=== PATIENT | male | born 1950 | race African-American/Black ===

== ENCOUNTER 2016-09-16 19:40 | Emergency (ER) | payer OTHER ==
--- NOTE | 2016-09-16 21:20 | PROVIDER DOCUMENTATION ---
HPI-Respiratory General - General Source: patient - History of Present Illness-Resp Quality of Pain: reports: none Severity in ED: reports: mild Onset/Duration: reports: 2 days ago Timing: reports: still present Cough Quality/Degree: reports: mild, productive cough, sputum Episode Frequency: no prior episodes Current Respiratory Medication Therapy: Initiated see nurses note Associated Symptoms: reports: cough, fever/chills (subjective), nasal congestion Similar Symptoms Previously?: No Recently seen or treated by another doctor?: No <Merissa Aquino - Last Filed: 09/16/16 22:21> <Homero Thomas - Last Filed: 09/16/16 22:25> - General Chief Complaint: Cold Symptoms Stated Complaint: COUGHING,THROAT SCRATCHY Time Seen by Provider: 09/16/16 20:20 Allergies/Adverse Reactions: Patient Allergies Allergy/AdvReac Type Severity Reaction Status Date / Time Penicillins Allergy Mild RASH Verified 07/16/16 21:27 morphine AdvReac Intermediate AMS Verified 07/16/16 21:27 Home Medications: Home Medication List Medication Instructions Recorded Confirmed Last Taken Type Omeprazole [Prilosec] 20 mg PO BID 06/24/12 06/15/16 05/27/16 History Trazodone [Desyrel] 150 mg PO QHS 06/24/12 06/15/16 1 Day Ago History Multivitamin [Multivitamins] 1 each PO QAM 06/25/12 06/15/16 05/27/16 History Tamsulosin [Flomax] 0.4 mg PO QAM 06/25/12 06/15/16 05/27/16 History Sertraline HCl [Zoloft] 100 mg PO QAM 01/02/14 06/15/16 05/27/16 History Albuterol [Albuterol Neb] 2.5 mg INH 4XDAY 07/11/15 06/15/16 04/13/16 History Isosorbide Mononitrate E.r. [Imdur] 60 mg PO QAM #0 tablet 10/07/15 06/15/1601/04 Rx Insulin Glargine [Lantus] 40 units SUBQ DIRECTED PRN PRN 01/17/16 06/15/16 3 Days Ago History Carvedilol 25 mg PO BID #60 tablet 0906/15/16 05/27/16 Rx Aspirin 81 mg PO DAILY 05/27/16 06/15/16 05/27/16 History Glipizide 10 mg PO BID 05/27/16 06/15/16 05/27/16 History Meloxicam 15 mg PO DAILY 05/27/16 06/15/16 05/27/16 History Metformin HCl 1,000 mg PO BID 05/27/16 06/15/16 05/27/16 History Hydrocodone/Acetaminophen [[place] 1 each PO 4XDAY PRN PRN 05/28/16 06/15/1605/27 09:00 History 10-325 Tablet] Amlodipine [Norvasc] 10 mg PO DAILY #30 tablet 05/31/16 06/15/16 Unknown Rx Clonidine Patch [Mhbrocdj-Ycp-9] 1 each TD Q7D #4 patch 05/31/16 06/15/16 Unknown Rx Furosemide [Lasix] 40 mg PO DAILY #30 tablet 05/31/16 06/15/16 Unknown Rx Losartan [Cozaar] 100 mg PO DAILY #30 tablet 05/31/16 06/15/16 Unknown Rx PRAVAstatin [Pravachol] 80 mg PO QHS #0 05/31/16 06/15/16 05/26/16 21:00 Rx Potassium Chloride E.r. [Klor-Con] 20 meq PO DAILY #30 tablet 05/31/16 06/15/16 Unknown Rx Spironolactone [Aldactone] 25 mg PO DAILY #30 tablet 05/31/16 06/15/16 Unknown Rx Cyclobenzaprine [Flexeril] 10 mg PO TID #20 tablet 06/15/16 Unknown Rx Ibuprofen [Motrin] 800 mg PO Q8H PRN PRN #20 tablet 06/15/16 Unknown Rx Omeprazole [Prilosec] 20 mg PO DAILY@0700 #20 capsule 06/15/16 Unknown Rx Cyclobenzaprine [Flexeril] 10 mg PO TID #20 tablet 07/16/16 Unknown Rx Gabapentin [Neurontin] 300 mg PO BID #30 capsule 07/16/16 Unknown Rx Azithromycin 250 mg PO DAILY #4 tablet 09/16/16 Unknown Rx - History of Present Illness-Resp Nature of Presenting Problem: 66 year old M presents to the ED with a cc of cough, congestion, and sore throat with an onset of 2 days. Pt states that he has been coughing up yellow phlegm. Pt states that he has been having chills and sweats. (Merissa Aquino) Review of Systems - Adult - REVIEW OF SYSTEMS - ADULT Constitutional: reports: fever (subjective). denies: chills Eyes: reports: no symptoms reported Ears, Nose, Mouth & Throat: reports: sinus problem, throat pain. denies: ear pain Cardiovascular: denies: chest pain, palpitations Respiratory: reports: cough. denies: shortness of breath Gastrointestinal: denies: nausea, vomiting Genitourinary: reports: no symptoms reported Musculoskeletal: reports: no symptoms reported Integumentary: denies: skin sores/ulcer, skin thickening Neurological: reports: no symptoms reported Psychiatric: reports: no symptoms reported Endocrine: reports: no symptoms reported Hematologic/Lymphatic: reports: no symptoms reported Allergic/Immunologic: reports: no symptoms reported All Other Systems: Reviewed and Negative <Merissa Aquino - Last Filed: 09/16/16 22:21> Past History - Adult - PAST MEDICAL HISTORY-ADULT Review of Records: reports: Nursing Assessment Review, Medications Reviewed Major Childhood Illnesses: reports: denies history Cardiovascular: reports: cardiac disease, CAD, CHF, HTN, hyperlipidemia, ID (x 2 ) Respiratory: reports: COPD Gastrointestinal: reports: denies history Obstetrical/Gynecological: reports: denies history Genitourinary: reports: denies history Musculoskeletal: reports: chronic pain Neurological: reports: denies history Psychiatric: reports: anxiety, depression Endocrine/Immune: reports: Diabetes Other Conditions: reports: denies history - PRIOR SURGERIES/PROCEDURES Surgical/Procedure History: reports: hernia repair, orthopedic (extremity) ( LEFT AKA) - IMMUNIZATION STATUS Childhood Immunizations: See Nurse Assessment Flu Vaccine: See Nurse Assessment - FAMILY HISTORY Family History: reviewed, not pertinent - SOCIAL HISTORY Smoking: cigarettes, greater than 1 pack/day Provider spent 3-5 mins advising pt. on dangers of tobacco.: Discussed manners to quit use, and f/u contacts for add'l counseling. Substance Use: none/never Alcohol Use Frequency: occasionally <Merissa Aquino - Last Filed: 09/16/16 22:21> Physical Exam-General - PHYSICAL EXAM-ADULT Initial Vital Signs Reviewed: Yes - CONSTITUTIONAL General Appearance: appears well, alert, no apparent distress - HEAD, EARS, NOSE, MOUTH & THROAT HENMT: normocephalic/atraumatic, moist mucous membranes, TMs normal, pharynx normal, other (nasal congestion) - RESPIRATORY Respiratory: chest non-tender, lungs clear, decreased breath sounds (bilaterally ) - CARDIOVASCULAR Cardiovascular: normal peripheral pulses, regular rate, rhythm, no edema - GASTROINTESTINAL (ABDOMEN) Abdominal Exam: non tender, soft - MUSCULOSKELETAL Extremity: other (left AKA) - SKIN Integumentary: normal color, normal turgor, warm/dry - PSYCHIATRIC Psych/Mental Status: normal mood/affect, normal thought content, normal thought process, oriented x 3 <Merissa Aquino - Last Filed: 09/16/16 22:21> Progress - XRAY 1 XRAY Study: Chest Impression: Normal XRAY Interpretation: NAD, improved from previous: Dr. Ez MAGANA MD <Merissa Aquino - Last Filed: 09/16/16 22:21> <Homero Thomas - Last Filed: 09/16/16 22:25> - PLAN OF CARE/RESULTS Progress/Plan/Lab Results: plan of care: imaging, labs Orders Category Date Time Status FSBS/Accucheck Result NOW Care 09/16/16 21:20 Active CHEST-2 VIEWS [RAD] Stat Exams 09/16/16 21:[address] Stat Lab 09/16/16 21:40 Completed Flu [INFLUENZA SCREEN PL] Stat Lab 09/16/16 20:00 Completed Laboratory Tests 09/16/16 09/16/16 09/16/16 20:00 21:40 21:54 POC Glucose 263 H Influenza A (Rapid) NEGATIVE Influenza B (Rapid) NEGATIVE Group A Strep Rapid NEGATIVE Vital Signs - 24 hr 09/16/16 20:01 Temperature 98.8 F Pulse Rate 94 H Respiratory 18 Rate Blood Pressure 129/71 O2 Sat by Pulse 97 Oximetry Pt given results and will be d/c home w/ rx to follow up with PCP. Pt verbally understood instructions. PT remained clinically stable throughout the course of the ED stay and will return if symptoms worsen. (Merissa Aquino) Departure <Merissa Aquino - Last Filed: 09/16/16 22:21> - Departure Time of Disposition Order: 23:00 Certified Medical Emergency: Emergent <Homero Thomas Filed: 09/16/16 22:25> - Departure DIAGNOSIS: Acute bronchitis Qualifiers: Bronchitis organism: other organism Qualified Code(s): J20.8 - Acute bronchitis due to other specified organisms Disposition: HOME 01 Condition: Stable Additional Instructions: followup with PCP in 2 days for recheck, tylenol and motrin for pain and fever Prescriptions: Azithromycin 250 mg PO DAILY #4 tablet Referrals: Doyle Hoyt MD [Primary Care Provider] - Attestation - Scribe Verification/Attestation Scribe:: Merissa Aquino Acting as Scribe for:: Homero Thomas Scribe documention review:: This chart was documented by a scribe and accurately reflects the service the provider performed and the decisions made by the provider. <Merissa Aquino - Last Filed: 09/16/16 22:21> Physician Attestation - Physician Attestation I, the provider, attest to the following statement:: Homero Thomas Physician documentation Attestation:: This documentation recorded by the scribe accurately reflects the service I personally performed and the decisions made by me. <Merissa Aquino - Last Filed: 09/16/16 22:21>
[2016-09-16] MEDS ORDERED: ROCEPHIN IM ONE (22:22)
[2016-09-16] MEDS ORDERED: XYLOCAINE-MPF 1% INJ ONE (22:22)
[2016-09-16] MEDS ORDERED: ZITHROMAX PO ONE (22:23)
[2016-09-16 23:08] VITALS: BP 140/83
--- NOTE | 2016-09-17 08:51 | Diag Imaging Result Document ---
PROCEDURE NAME: CHEST-2 VIEWS - 09/16/2016 FRONTAL AND LATERAL CHEST, TWO VIEWS: COMPARISON: 05/27/2016. FINDINGS: There has been prior surgery to the lower neck. The heart is not enlarged. The vessels are not distended. No pleural effusions. There are mild increased interstitial markings in the mid and lower left lung believed to be fibrosis. No consolidation. IMPRESSION: Fibrosis versus recurrent infiltrates.
== END 2016-09-16 23:06 | disposition home or self-care (01) ==
LOC: P.ED 19:40
DX: J20.9 Acute bronchitis, unspecified (principal); R05 Cough; R09.3 Abnormal sputum; R50.9 Fever, unspecified; R09.81 Nasal congestion; R09.89 Other specified symptoms and signs involving the circulatory and respiratory systems; J02.9 Acute pharyngitis, unspecified; I25.10 Atherosclerotic heart disease of native coronary artery without angina pectoris; Z79.899 Other long term (current) drug therapy; I50.9 Heart failure, unspecified; I10 Essential (primary) hypertension; E78.5 Hyperlipidemia, unspecified; I25.2 Old myocardial infarction; J44.9 Chronic obstructive pulmonary disease, unspecified; G89.29 Other chronic pain; E11.9 Type 2 diabetes mellitus without complications; F41.9 Anxiety disorder, unspecified; F32.9 Major depressive disorder, single episode, unspecified; F17.210 Nicotine dependence, cigarettes, uncomplicated; Z79.82 Long term (current) use of aspirin; Z79.4 Long term (current) use of insulin; Z71.6 Tobacco abuse counseling; Z89.612 Acquired absence of left leg above knee
CPT/HCPCS: 71020; 82948; 87081; 87430; 87804; 96372; J0696

== ENCOUNTER 2016-09-25 20:50 | Emergency (ER) | payer OTHER ==
[2016-09-25 21:12] LABS: MANUAL DIFF NEEDED? NO
[2016-09-25 21:15] LABS: BASO% 0.3 % (0.0-0.8); EOS# 0.36 X1000 (0.0-0.7); EOS% 3.7 % (0.0-10.0); HEMOGLOBIN 14.2 g/dL (14.0-18.0); IMM GRAN# 0.03 X1000 (0.0-0.04); IMM GRAN% 0.3 % (0.0-0.5); LYMPH# 2.59 X1000 (1.2-3.4); LYMPH% 26.3 % (20.5-51.1); MCH 28.2 PG (27-31); MCHC 34.6 g/dL (33-37); MCV 81.5 FL (81-99); MONO# 0.78 X1000 (0.11-0.59); MONO% 7.9 % (1.7-9.3); MPV 12.2 FL (7.4-10.4); NEUT% 61.5 % (42.2-75.2); PLT 150 X1000 (130-400); RBC 5.03 XMIL (4.7-6.1)
--- NOTE | 2016-09-25 21:20 | PROVIDER DOCUMENTATION ---
Addendum entered and electronically signed by Merissa Aquino Scribe 09/26/16 02: 09: Progress - PLAN OF CARE/RESULTS Progress/Plan/Lab Results: plan of care: imaging, labs, medications, EKG Orders Category Date Time Status CHEST-2 VIEWS [RAD] Stat Exams 09/25/16 21:07 Taken BNP [PRO B-NATRIURETIC PEPTIDE] Stat Lab 09/25/16 21:07 Completed CBC WITH DIFF [HEME] Stat Lab 09/25/16 20:35 Completed CK PROFILE [SP CHEM] Stat Lab 09/25/16 20:35 Completed COMPREHENSIVE METABOLIC PANEL [CHEM] Stat Lab 09/25/16 20:35 Completed TROPONIN T Stat Lab 09/25/16 20:35 Completed TROPONIN T Stat Lab 09/26/16 00:[address] W/POSS RFLX CULT [URINALYSIS] Stat Lab 09/25/16 22:00 Completed URINE CULTURE [RM] Routine Lab 09/25/16 22:58 Ordered Furosemide [Lasix] Med 09/25/16 22:52 Discontinued 40 mg IV NOW ONE Levofloxacin [Levaquin] Med 09/26/16 01:39 Discontinued 750 mg PO NOW ONE Oxycodone/APAP 10 mg/325 mg [Percocet-10] Med 09/26/16 01:33 Discontinued 1 each PO NOW ONE EKG [EKG] Stat Ther 09/25/16 21:06 Draft EKG [EKG] Stat Ther 09/26/16 00:25 Draft Laboratory Tests 09/25/16 09/25/16 09/25/16 20:35 20:35 20:35 WBC 9.86 RBC 5.03 Hgb 14.2 Hct 41.0 L MCV 81.5 MCH 28.2 MCHC 34.6 RDW Std Deviation 14.6 H Plt Count 150 MPV 12.2 H Immature Gran % (Auto) 0.3 Neut % (Auto) 61.5 Lymph % (Auto) 26.3 Wilkinson % (Auto) 7.9 Eos % (Auto) 3.7 Baso % (Auto) 0.3 Immature Gran # (Auto) 0.03 Neut # (Auto) 6.07 Lymph # (Auto) 2.59 Wilkinson # (Auto) 0.78 H Eos # (Auto) 0.36 Baso # (Auto) 0.03 Sodium 132 L Potassium 3.6 Chloride 94 L Carbon Dioxide 24 L Anion Gap 14 BUN 10 Creatinine 1.2 Estimated GFR/1.73 m2 > 60 BUN/Creatinine Ratio 8 Glucose 236 H Calculated Osmolality 271 Calcium 9.4 Total Bilirubin < 0.15 L AST 17 ALT 14 Alkaline Phosphatase 78 Creatine Kinase 202 Troponin T Ocb-P-Kjwbzbmtain Pept Total Protein 6.8 Albumin 3.9 Globulin 3.0 Albumin/Globulin Ratio 1.0 Urine Source Urine Color Urine Clarity Urine pH Ur Specific [place] Urine Protein Urine Ketones Urine Blood Urine Nitrite Urine Bilirubin Urine Urobilinogen Urine Microscopic RBC Urine WBC Urine Microscopic WBC Ur Epithelial Cells Urine Bacteria Urine Glucose 09/25/16 09/25/16 09/25/16 20:35 21:07 22:00 WBC RBC Hgb Hct MCV MCH MCHC RDW Std Deviation Plt Count MPV Immature Gran % (Auto) Neut % (Auto) Lymph % (Auto) Wilkinson % (Auto) Eos % (Auto) Baso % (Auto) Immature Gran # (Auto) Neut # (Auto) Lymph # (Auto) Wilkinson # (Auto) Eos # (Auto) Baso # (Auto) Sodium Potassium Chloride Carbon Dioxide Anion Gap BUN Creatinine Estimated GFR/1.73 m2 BUN/Creatinine Ratio Glucose Calculated Osmolality Calcium Total Bilirubin AST ALT Alkaline Phosphatase Creatine Kinase Troponin T < 0.010 Bpi-E-Thfsypcqmhx Pept 447 H Total Protein Albumin Globulin Albumin/Globulin Ratio Urine Source VOIDED Urine Color YELLOW Urine Clarity CLEAR Urine pH 6.5 Ur Specific [place] 1.005 Urine Protein 1+(30 mg/dL) A Urine Ketones NEGATIVE Urine Blood TRACE Urine Nitrite NEGATIVE Urine Bilirubin NEGATIVE Urine Urobilinogen NORMAL Urine Microscopic RBC <10 Urine WBC TRACE A Urine Microscopic WBC <10 Ur Epithelial Cells <10 Urine Bacteria 3+ Urine Glucose 3+(500 mg/dL) A 09/26/16 00:45 WBC RBC Hgb Hct MCV MCH MCHC RDW Std Deviation Plt Count MPV Immature Gran % (Auto) Neut % (Auto) Lymph % (Auto) Wilkinson % (Auto) Eos % (Auto) Baso % (Auto) Immature Gran # (Auto) Neut # (Auto) Lymph # (Auto) Wilkinson # (Auto) Eos # (Auto) Baso # (Auto) Sodium Potassium Chloride Carbon Dioxide Anion Gap BUN Creatinine Estimated GFR/1.73 m2 BUN/Creatinine Ratio Glucose Calculated Osmolality Calcium Total Bilirubin AST ALT Alkaline Phosphatase Creatine Kinase Troponin T < 0.010 Bim-K-Cmmydhpifol Pept Total Protein Albumin Globulin Albumin/Globulin Ratio Urine Source Urine Color Urine Clarity Urine pH Ur Specific [place] Urine Protein Urine Ketones Urine Blood Urine Nitrite Urine Bilirubin Urine Urobilinogen Urine Microscopic RBC Urine WBC Urine Microscopic WBC Ur Epithelial Cells Urine Bacteria Urine Glucose Vital Signs - 24 hr 09/25/16 20:51 Temperature 98.8 F Pulse Rate 107 H Respiratory 18 Rate Blood Pressure 128/85 O2 Sat by Pulse 91 L Oximetry Pt given results and will be d/c home w/ rx to follow up with PCP. Pt verbally understood instructions. PT remained clinically stable throughout the course of the ED stay and will return if symptoms worsen. Original Note: HPI-Chest Pain - General Source: patient - History of Present Illness-CP Location: reports: other (back) Chest Pain Radiation: reports: other (right anterior chest) Quality of Pain: reports: sharp Severity in ED: mild Onset/Duration: 24 hours ago Timing: still present Context/Activities at Onset: reports: none Modifying Factors: improves with: nothing Similar Symptoms Previously?: No Recently Seen Here or By Another Healthcare Provider: No <Merissa Aquino - Last Filed: 09/25/16 22:09> <Dylan Colmenares - Last Filed: 09/26/16 02:00> - General Chief Complaint: Chest Pain Stated Complaint: chest pain Time Seen by Provider: 09/25/16 20:55 Allergies/Adverse Reactions: Patient Allergies Allergy/AdvReac Type Severity Reaction Status Date / Time Penicillins Allergy Mild RASH Verified 07/16/16 21:27 morphine AdvReac Intermediate AMS Verified 07/16/16 21:27 Home Medications: Home Medication List Medication Instructions Recorded Confirmed Last Taken Type Omeprazole [Prilosec] 20 mg PO BID 06/24/12 06/15/16 05/27/16 History Trazodone [Desyrel] 150 mg PO QHS 06/24/12 06/15/16 1 Day Ago History Multivitamin [Multivitamins] 1 each PO QAM 06/25/12 06/15/16 05/27/16 History Tamsulosin [Flomax] 0.4 mg PO QAM 06/25/12 06/15/16 05/27/16 History Sertraline HCl [Zoloft] 100 mg PO QAM 01/02/14 06/15/16 05/27/16 History Albuterol [Albuterol Neb] 2.5 mg INH 4XDAY 07/11/15 06/15/16 04/13/16 History Isosorbide Mononitrate E.r. [Imdur] 60 mg PO QAM #0 tablet 10/07/15 06/15/1601/04 Rx Insulin Glargine [Lantus] 40 units SUBQ DIRECTED PRN PRN 01/17/16 06/15/16 3 Days Ago History Carvedilol 25 mg PO BID #60 tablet 04/14/16 06/15/16 05/27/16 Rx Aspirin 81 mg PO DAILY 05/27/16 06/15/16 05/27/16 History Glipizide 10 mg PO BID 05/27/16 06/15/16 05/27/16 History Meloxicam 15 mg PO DAILY 05/27/16 06/15/16 05/27/16 History Metformin HCl 1,000 mg PO BID 05/27/16 06/15/16 05/27/16 History Hydrocodone/Acetaminophen [[place] 1 each PO 4XDAY PRN PRN 05/28/16 06/15/1605/27 09:00 History 10-325 Tablet] Amlodipine [Norvasc] 10 mg PO DAILY #30 tablet 05/31/16 06/15/16 Unknown Rx Clonidine Patch [Mgbluehi-Uby-9] 1 each TD Q7D #4 patch 05/31/16 06/15/16 Unknown Rx Furosemide [Lasix] 40 mg PO DAILY #30 tablet 05/31/16 06/15/16 Unknown Rx Losartan [Cozaar] 100 mg PO DAILY #30 tablet 05/31/16 06/15/16 Unknown Rx PRAVAstatin [Pravachol] 80 mg PO QHS #0 05/31/16 06/15/16 05/26/16 21:00 Rx Potassium Chloride E.r. [Klor-Con] 20 meq PO DAILY #30 tablet 05/31/16 06/15/16 Unknown Rx Spironolactone [Aldactone] 25 mg PO DAILY #30 tablet 05/31/16 06/15/16 Unknown Rx Cyclobenzaprine [Flexeril] 10 mg PO TID #20 tablet 06/15/16 Unknown Rx Ibuprofen [Motrin] 800 mg PO Q8H PRN PRN #20 tablet 06/15/16 Unknown Rx Omeprazole [Prilosec] 20 mg PO DAILY@0700 #20 capsule 06/15/16 Unknown Rx Cyclobenzaprine [Flexeril] 10 mg PO TID #20 tablet 07/16/16 Unknown Rx Gabapentin [Neurontin] 300 mg PO BID #30 capsule 07/16/16 Unknown Rx Azithromycin 250 mg PO DAILY #4 tablet 09/16/16 Unknown Rx Levofloxacin [Levaquin] 500 mg PO DAILY #7 tablet 09/26/16 Unknown Rx - History of Present Illness-CP Nature of Presenting Problem: 66 year old M presents to the ED with a cc of right sided chest pain. Pt states that it has been going on since yesterday but got worse tonight. Pt states that pain begins in back and radiates to right anterior chest. Pt states that he has also been coughing. PT is intoxicated. Pt states "My wanted to fight tonight and I did not so I got drunk." (Merissa Aquino) Review of Systems - Adult - REVIEW OF SYSTEMS - ADULT Constitutional: denies: chills, fever Eyes: reports: no symptoms reported Ears, Nose, Mouth & Throat: reports: no symptoms reported Cardiovascular: reports: chest pain. denies: palpitations Respiratory: reports: cough. denies: shortness of breath Gastrointestinal: denies: diarrhea, nausea, vomiting Genitourinary: reports: no symptoms reported Musculoskeletal: reports: no symptoms reported Integumentary: reports: no symptoms reported Neurological: reports: no symptoms reported Psychiatric: reports: no symptoms reported Endocrine: reports: no symptoms reported Hematologic/Lymphatic: reports: no symptoms reported Allergic/Immunologic: reports: no symptoms reported All Other Systems: Reviewed and Negative <Merissa Aquino - Last Filed: 09/25/16 22:09> Past History - Adult - PAST MEDICAL HISTORY-ADULT Review of Records: reports: Nursing Assessment Review, Medications Reviewed Major Childhood Illnesses: reports: denies history Cardiovascular: reports: cardiac disease, CAD, CHF, HTN, hyperlipidemia, ND (x 2 ) Respiratory: reports: COPD Gastrointestinal: reports: denies history Obstetrical/Gynecological: reports: denies history Genitourinary: reports: denies history Musculoskeletal: reports: chronic pain Neurological: reports: denies history Psychiatric: reports: anxiety, depression Endocrine/Immune: reports: Diabetes Other Conditions: reports: denies history - PRIOR SURGERIES/PROCEDURES Surgical/Procedure History: reports: hernia repair, orthopedic (extremity) ( LEFT AKA) - IMMUNIZATION STATUS Childhood Immunizations: See Nurse Assessment Flu Vaccine: See Nurse Assessment - FAMILY HISTORY Family History: reviewed, not pertinent - SOCIAL HISTORY Smoking: cigarettes, greater than 1 pack/day Provider spent 3-5 mins advising pt. on dangers of tobacco.: Discussed manners to quit use, and f/u contacts for add'l counseling. Substance Use: none/never <Merissa Aquino - Last Filed: 09/25/16 22:09> Physical Exam-General - PHYSICAL EXAM-ADULT Initial Vital Signs Reviewed: Yes - CONSTITUTIONAL General Appearance: alert, obese, other (intoxicated) - RESPIRATORY Respiratory: normal breath sounds, crackles (diffuse), wheezing (diffuse), other (right anterior chest wall tenderness) - CARDIOVASCULAR Cardiovascular: normal peripheral pulses, regular rate, rhythm, no edema - GASTROINTESTINAL (ABDOMEN) Abdominal Exam: normal bowel sounds, non tender, soft - MUSCULOSKELETAL Extremity: pedal edema (1-2+ right lower extremity), other (left AKA) - SKIN Integumentary: normal color, normal turgor, warm/dry <Merissa Aquino - Last Filed: 09/25/16 22:09> Progress - EKG 1 Time of EKG reading by physician:: 21:17 EKG Read and Signed by:: Dylan Colmenares EKG Interpretation (*Must complete 3 of following elements*): Abnormal Rate: 101 Rhythm: NSR ST Wave: non-specific ST changes (inferior lateral T wave changes) Comments: pulmonary disease pattern - XRAY 1 XRAY Study: Chest Impression: Abnormal XRAY Interpretation: cardiomegally w/ increased interstital markings, mild CHF: Dr. Colmenares-CHINO LEBLANC <Merissa Aquino - Last Filed: 09/25/16 22:09> Departure <Merissa Aquino - Last Filed: 09/25/16 22:09> - Departure Time of Disposition Order: 01:42 Certified Medical Emergency: Emergent (uti) <Dylan Colmenares - Last Filed: 09/26/16 02:00> - Departure DIAGNOSIS: CHF (congestive heart failure), NYHA class II Qualifiers: Congestive heart failure type: combined Congestive heart failure chronicity: acute on chronic Qualified Code(s): I50.43 - Acute on chronic combined systolic (congestive) and diastolic (congestive) heart failure UTI (urinary tract infection) Qualifiers: Urinary tract infection type: acute cystitis Hematuria presence: without hematuria Qualified Code(s): N30.00 - Acute cystitis without hematuria Disposition: HOME 01 Condition: Stable Additional Instructions: take your lasix every morning and check your sugar follow up with family doctor this week Prescriptions: Levofloxacin [Levaquin] 500 mg PO DAILY #7 tablet Referrals: Doyle Hoyt MD [Primary Care Provider] - Attestation - Scribe Verification/Attestation Scribe:: Merissa Aquino Acting as Scribe for:: Dylan Colmenares Scribe documention review:: This chart was documented by a scribe and accurately reflects the service the provider performed and the decisions made by the provider. <Merissa Aquino - Last Filed: 09/25/16 22:09> Physician Attestation - Physician Attestation I, the provider, attest to the following statement:: Dylan Colmenares Physician documentation Attestation:: This documentation recorded by the scribe accurately reflects the service I personally performed and the decisions made by me. <Merissa Aquino - Last Filed: 09/25/16 22:09>
--- NOTE | 2016-09-25 21:31 | EKG Report ---
Test Performed on : 09/25/2016 9:17:03 PM Test Reason : pain Blood Pressure : / mmHG Vent. Rate : 101 BPM Atrial Rate : 094 BPM P-R Int : 000 ms QRS Dur : 110 ms QT Int : 370 ms P-R-T Axes : 000 -53 128 degrees QTc Int : 479 ms Undetermined rhythm Left anterior fascicular block Cannot rule out Inferior infarct , age undetermined T wave abnormality, consider lateral ischemia Abnormal ECG When compared with ECG of 27-MAY-2016 20:33, Current undetermined rhythm precludes rhythm comparison, needs review Left anterior fascicular block is now present Minimal criteria for Inferior infarct are now present T wave inversion now evident in Lateral leads Unconfirmed Result
[2016-09-25 21:42] LABS: AGAP 14; ALBUMIN 3.9 g/dL (3.5-5.0); ALKALINE PHOSPHATASE 78 U/L (32-122); BUN 10 mg/dL (8-22); CALCIUM 9.4 mg/dL (8.8-10.2); CHLORIDE 94 mmol/L (98-107); COSMO 271; GOT 17 U/L (10-34); GPT 14 U/L (10-44); POTASSIUM 3.6 mmol/L (3.5-5.1); SODIUM 132 mmol/L (136-145); TCO2 24 mmol/L (25-35); TOTAL BILIRUBIN < 0.15 mg/dL (0.20-1.00); TOTAL PROTEIN 6.8 g/dL (6.3-8.3)
[2016-09-25 22:38] LABS: URINE SOURCE VOIDED
[2016-09-25] MEDS ORDERED: LASIX IV ONE (22:52)
[2016-09-25 22:57] LABS: BILIRUBIN URINE NEGATIVE (NEGATIVE); BLOOD URINE TRACE (NEGATIVE); CLARITY CLEAR (CLEAR); COLOR YELLOW; LEUKOCYTES URINE TRACE (NEGATIVE); NITRITE URINE NEGATIVE (NEGATIVE); PH URINE 6.5; PROTEIN URINE 1+(30 mg/dL) mg/dL (NEGATIVE); SP GRAVITY URINE 1.005; UROBILINOGEN URINE NORMAL
[2016-09-25 22:58] LABS: URINE CULTURE PL NEEDED? YES; URINE EPITHELIAL CELLS <10 /HPF (<10); URINE RBC <10 /HPF (<10); URINE WBC <10 /HPF (<10)
--- NOTE | 2016-09-26 01:08 | EKG Report ---
Test Performed on : 09/26/2016 00:59:58 AM Test Reason : pain Blood Pressure : / mmHG Vent. Rate : 102 BPM Atrial Rate : 315 BPM P-R Int : 000 ms QRS Dur : 104 ms QT Int : 358 ms P-R-T Axes : 076 -51 111 degrees QTc Int : 466 ms Atrial flutter. with variable AV block. Left anterior fascicular block ST & T wave abnormality, consider lateral ischemia Abnormal ECG When compared with ECG of 25-SEP-2016 21:17, (Unconfirmed) Previous ECG has undetermined rhythm, needs review Unconfirmed Result
[2016-09-26] MEDS ORDERED: PERCOCET-10 PO ONE (01:33)
[2016-09-26] MEDS ORDERED: LEVAQUIN PO ONE (01:39)
[2016-09-26 06:14] VITALS: BP 142/91
--- NOTE | 2016-09-26 08:24 | Diag Imaging Result Document ---
PROCEDURE NAME: CHEST-2 VIEWS - 09/25/2016 2 VIEWS OF THE CHEST: FINDINGS: There is fibrosis in the pleura and lingula. There has been no significant change in the appearance of the chest since 09/17/2016. IMPRESSION: Stable chest.
== END 2016-09-26 06:13 | disposition home or self-care (01) ==
LOC: P.ED 20:50
DX: I50.43 Acute on chronic combined systolic (congestive) and diastolic (congestive) heart failure (principal); N30.00 Acute cystitis without hematuria; R94.31 Abnormal electrocardiogram [ECG] [EKG]; R07.89 Other chest pain; M54.9 Dorsalgia, unspecified; R05 Cough; R06.2 Wheezing; R60.0 Localized edema; Z79.899 Other long term (current) drug therapy; I25.10 Atherosclerotic heart disease of native coronary artery without angina pectoris; I10 Essential (primary) hypertension; E78.5 Hyperlipidemia, unspecified; I25.2 Old myocardial infarction; J44.9 Chronic obstructive pulmonary disease, unspecified; G89.29 Other chronic pain; E11.9 Type 2 diabetes mellitus without complications; F41.9 Anxiety disorder, unspecified; F32.9 Major depressive disorder, single episode, unspecified; E66.9 Obesity, unspecified; F17.210 Nicotine dependence, cigarettes, uncomplicated; Z79.82 Long term (current) use of aspirin; Z79.4 Long term (current) use of insulin; Z71.6 Tobacco abuse counseling; Z89.612 Acquired absence of left leg above knee
CPT/HCPCS: 71020; 80053; 81001; 82550; 83880; 84484; 85025; 87088; 93005; J1940

== ENCOUNTER 2016-10-05 17:20 | Emergency (ER) | payer OTHER ==
[2016-10-05] MEDS ORDERED: NITROGLYCERIN SL PRN (17:38)
[2016-10-05] MEDS ORDERED: ASPIRIN PO STA (17:38)
--- NOTE | 2016-10-05 17:56 | PROVIDER DOCUMENTATION ---
HPI-General Adult - General Chief Complaint: Chest Pain Stated Complaint: CP,SOB Time Seen by Provider: 10/05/16 17:37 Source: patient Allergies/Adverse Reactions: Patient Allergies Allergy/AdvReac Type Severity Reaction Status Date / Time Penicillins Allergy Mild RASH Verified 10/05/16 18:18 morphine AdvReac Intermediate AMS Verified 10/05/16 18:18 Home Medications: Home Medication List Medication Instructions Recorded Confirmed Last Taken Type Trazodone [Desyrel] 150 mg PO QHS 06/24/12 10/05/16 10/04/16 20:00 History Multivitamin [Multivitamins] 1 each PO QAM 06/25/12 10/05/16 10/05/16 07:00 History Tamsulosin [Flomax] 0.4 mg PO QAM 06/25/12 10/05/16 10/05/16 07:00 History Sertraline HCl [Zoloft] 100 mg PO QAM 01/02/14 10/05/16 10/05/16 07:00 History Albuterol [Albuterol Neb] 2.5 mg INH 4XDAY 07/11/15 10/05/16 10/05/16 12:00 History Isosorbide Mononitrate E.r. [Imdur] 60 mg PO QAM #0 tablet 10/07/15 10/05/16 07:00 Rx Insulin Glargine [Lantus] 40 units SUBQ DIRECTED PRN PRN 01/17/16 10/05/16 3 Days Ago History Carvedilol 25 mg PO BID #60 tablet 04/14/16 10/05/16 10/05/16 07:00 Rx Aspirin 81 mg PO DAILY 05/27/16 10/05/16 10/05/16 07:00 History Meloxicam 15 mg PO DAILY 05/27/16 10/05/16 05/27/16 History Metformin HCl 1,000 mg PO BID 05/27/16 10/05/16 10/05/16 07:00 History Hydrocodone/Acetaminophen [Hope 1 each PO 4XDAY PRN PRN 05/28/16 10/05/1605/27 09:00 History 10-325 Tablet] Amlodipine [Norvasc] 10 mg PO DAILY #30 tablet 05/31/16 10/05/1617 07:00 Rx Clonidine Patch [Okzjzxte-Ypg-2] 1 each TD Q7D #4 patch 05/31/16 10/05/16 Unknown Rx Furosemide [Lasix] 40 mg PO DAILY #30 tablet 05/31/16 10/05/16 10/05/16 07:00 Rx PRAVAstatin [Pravachol] 80 mg PO QHS #0 05/31/16 10/05/16 10/04/16 20:00 Rx Potassium Chloride E.r. [Klor-Con] 20 meq PO DAILY #30 tablet 05/31/16 10/05/16 10/05/16 07:00 Rx Spironolactone [Aldactone] 25 mg PO DAILY #30 tablet 05/31/16 10/05/16 10/05/16 07:00 Rx Omeprazole [Prilosec] 20 mg PO DAILY@0700 #20 capsule 06/15/16 10/05/16 07:00 Rx Gabapentin [Neurontin] 300 mg PO BID #30 capsule 07/16/16 10/05/16 10/05/16 07: 00 Rx Hydrocodone/APAP 5 mg/325 mg 1 - 2 tab PO Q6H PRN PRN #18 tablet 09/26/16 Unknown Rx [Hope-5] Losartan [Cozaar] 50 mg PO DAILY 09/27/16 10/05/16 10/05/16 07:00 History Rivaroxaban [Xarelto] 10 mg PO DAILY 10/05/16 10/05/16 10/05/16 07:00 History - History of Present Illness -Gen Adult Nature of Presenting Problems: This pt presents to ED with c/o of chest pain that started about 1130 this morning while he was sitting on his couch. He describes the pain has crushing with an occasional burning that radiates down his left arm. He states, "this pain is not any worse than I had before, I just wanted to get checked out." Denies SOB but does report a productive cough x1 month of white sputum. Reports feeling nauseated but denies fever, diarrhea, chills, body aches. Location of Pain/Injury: reports: chest. denies: head, face, mouth, neck, upper extremity, hand(s), abdomen, back, pelvis, genitalia, lower extremity, feet, upper body, lower body, generalized Pain Radiation: reports: arm(s) (radiating down his left arm), chest. denies: back, buttocks, feet, groin, jaw Quality of Pain: reports: sharp, tightness Severity: reports: moderate Onset/Duration: reports: abrupt, 4-6 hours ago Timing: reports: still present Context/Activities at Onset: reports: none. denies: recent emotional stress, cold exposure, eating Modifying Factors: improves with: coughing. worse with: antacids, breathing, cold/heat therapy Associated Symptoms: reports: arm pain, chest pain, cough Similar Symptoms Previously?: Yes Recently seen or treated by another doctor?: Yes (at [facility], 1 week ago) - Diabetes Related Context Context: denies: low blood sugar, high blood sugar, change in mental status - Sickle Cell Pain Related Context Sickle Cell Pain Location: reports: none. denies: head, face, hand(s), abdomen , back, upper body, lower body, generalized Review of Systems - Adult - REVIEW OF SYSTEMS - ADULT Constitutional: reports: see HPI. denies: chills, night sweats, weight gain, weight loss Eyes: reports: see HPI. denies: decreased vision, blurred vision, double vision , eye pain Ears, Nose, Mouth & Throat: reports: see HPI. denies: ear discharge, ear pain, hearing loss, tinnitus Cardiovascular: reports: see HPI, chest pain. denies: orthopnea, poor circulation, syncope Respiratory: reports: see HPI, chronic cough, shortness of breath (intermittent sob). denies: hemoptysis, pleurisy Gastrointestinal: reports: see HPI. denies: abdominal pain, hematemesis, constipation Genitourinary: reports: see HPI. denies: flank pain, frequent UTI's, hematuria Musculoskeletal: reports: see HPI. denies: bone pain, back pain, joint swelling , muscle aches Integumentary: reports: see HPI. denies: itching, mole changes, nail changes, rash Neurological: reports: see HPI. denies: dizziness/vertigo, headache/migraines, numbness, paresthesia Past History - Adult - PAST MEDICAL HISTORY-ADULT Review of Records: reports: Old Records Reviewed, Nursing Assessment Review, Medications Reviewed, Social history reviewed & non-contributory. Major Childhood Illnesses: reports: denies history Cardiovascular: reports: cardiac disease, CAD, CHF, HTN, hyperlipidemia, HI (x 2 ) Respiratory: reports: COPD Gastrointestinal: reports: denies history Obstetrical/Gynecological: reports: denies history Genitourinary: reports: denies history Musculoskeletal: reports: chronic pain Neurological: reports: denies history Psychiatric: reports: anxiety, depression Endocrine/Immune: reports: Diabetes Other Conditions: reports: denies history - PRIOR SURGERIES/PROCEDURES Surgical/Procedure History: reports: hernia repair, orthopedic (extremity) ( LEFT AKA) - IMMUNIZATION STATUS Childhood Immunizations: See Nurse Assessment Flu Vaccine: See Nurse Assessment - FAMILY HISTORY Family History: reviewed, not pertinent Physical Exam-General - PHYSICAL EXAM-ADULT Initial Vital Signs Reviewed: Yes - CONSTITUTIONAL General Appearance: appears well, alert, no apparent distress. negative: severe distress, lethargic, slow to respond - EYES Eyes: PERRL/EOMI, pink conjunctivae. negative: pale conjunctivae, photophobia, sclera injected - HEAD, EARS, NOSE, MOUTH & THROAT HENMT: normocephalic/atraumatic, moist mucous membranes, normal ENT inspection. negative: angioedema, dental decay, hearing deficit - NECK Neck: non-tender, full range of motion, supple. negative: C-spine tenderness, limited range of motion, lymphadenopathy - RESPIRATORY Respiratory: no respiratory distress, no accessory muscle use, rhonchi ( bilaterally). negative: accessory muscle use, crackles, rales, stridor, wheezing, plerual rub, retractions - CARDIOVASCULAR Cardiovascular: normal peripheral pulses (LLE prosthetic), regular rate, rhythm , no JVD, no murmur. negative: extra beats, friction rub, irregularly irregular - CHEST (BREASTS) Chest/Breast: normal breast inspection. negative: nipple discharge, tenderness , mass/lump noted - GASTROINTESTINAL (ABDOMEN) Abdominal Exam: normal bowel sounds. negative: guarding, rigid, rebound, tenderness, hernia, mass - GENITOURINARY Female Genitalia/Pelvic Exam: deferred Male Genitalia: deferred Rectal Exam: deferred Hemoccult Exam: deferred - LYMPHATIC Lymphatic: no adenopathy. negative: axilla node tender, cervical node tenderness, inguinal node tender - MUSCULOSKELETAL Back Exam: normal inspection, no CVA tenderness, no vertebral tenderness. negative: CVA tenderness, decreased range of motion, ecchymosis, swelling Extremity: normal range of motion, non-tender. negative: deformity, erythema, inflammation, swelling, tenderness Peripheral Pulses: radial (R): 2+, radial (L): 2+ - SKIN Integumentary: normal color, warm/dry, abrasion(s). negative: blanching, cyanosis, diaphoresis, decubitus, ecchymosis, erythema, jaundice, mottled, pallor, petechiae, purpura, rash, swelling, tenderness - NEUROLOGIC Neurologic: bulk station agent II-XII nml as tested, grossly normal. negative: aphasia, facial droop, focal weakness, motor weakness, sensory deficit - PSYCHIATRIC Psych/Mental Status: normal mood/affect, normal thought content, normal thought process, oriented x 3. negative: anxious, paranoid, tearful Progress - PLAN OF CARE/RESULTS Progress/Plan/Lab Results: Discussed results and plan of care with patient. Patient agrees with plan and verbalizes understanding. Vital Signs Pulse Resp BP Pulse Ox 10/05/16 17:22 73 22 157/77 98 Penicillins Allergy (Mild, Verified 10/05/16 18:18) RASH morphine Adverse Reaction (Intermediate, Verified 10/05/16 18:18) AMS Trazodone [Desyrel] 150 mg PO QHS 06/24/12 Multivitamin [Multivitamins] 1 each PO QAM 06/25/12 Tamsulosin [Flomax] 0.4 mg PO QAM 06/25/12 Sertraline HCl [Zoloft] 100 mg PO QAM 01/02/14 Albuterol [Albuterol Neb] 2.5 mg INH 4XDAY 07/11/15 Isosorbide Mononitrate E.r. [Imdur] 60 mg PO QAM #0 tablet 10/07/15 Insulin Glargine [Lantus] 40 units SUBQ DIRECTED PRN PRN 01/17/16 Carvedilol 25 mg PO BID #60 tablet 04/14/16 Aspirin 81 mg PO DAILY 05/27/16 Meloxicam 15 mg PO DAILY 05/27/16 Metformin HCl 1,000 mg PO BID 05/27/16 Hydrocodone/Acetaminophen [Hope 10-325 Tablet] 1 each PO 4XDAY PRN PRN Amlodipine [Norvasc] 10 mg PO DAILY #30 tablet 05/31/16 Clonidine Patch [Msbfdwyt-Ygm-7] 1 each TD Q7D #4 patch 05/31/16 Furosemide [Lasix] 40 mg PO DAILY #30 tablet 05/31/16 PRAVAstatin [Pravachol] 80 mg PO QHS #0 05/31/16 Potassium Chloride E.r. [Klor-Con] 20 meq PO DAILY #30 tablet 05/31/16 Spironolactone [Aldactone] 25 mg PO DAILY #30 tablet 05/31/16 Omeprazole [Prilosec] 20 mg PO DAILY@0700 #20 capsule 06/15/16 Gabapentin [Neurontin] 300 mg PO BID #30 capsule 07/16/16 Hydrocodone/APAP 5 mg/325 mg [Hope-5] 1 - 2 tab PO Q6H PRN PRN #18 tablet 09/26 Losartan [Cozaar] 50 mg PO DAILY 09/27/16 Rivaroxaban [Xarelto] 10 mg PO DAILY 10/05/16 Laboratory 10/05/16 10/05/16 10/05/16 18:09 18:09 18:09 WBC RBC Hgb Hct MCV MCH MCHC RDW Std Deviation Plt Count MPV Neut % (Auto) Lymph % (Auto) Dickens % (Auto) Eos % (Auto) Baso % (Auto) Neut # (Auto) Lymph # (Auto) Dickens # (Auto) Eos # (Auto) Baso # (Auto) PT 13.0 H INR 1.22 PTT (Actin FS) 33.4 Sodium Potassium Chloride Carbon Dioxide Anion Gap BUN Creatinine Estimated GFR/1.73 m2 BUN/Creatinine Ratio Glucose Calculated Osmolality Calcium Magnesium Total Bilirubin AST ALT Alkaline Phosphatase Creatine Kinase Creatine Kinase Index CK-MB (CK-2) Troponin T < 0.010 Cck-R-Mifmquzqpms Pept 698 H Total Protein Albumin Globulin Albumin/Globulin Ratio 10/05/16 10/05/16 18:09 18:09 WBC 9.18 RBC 5.06 Hgb 14.1 Hct 42.7 MCV 84.4 MCH 27.9 MCHC 33.0 RDW Std Deviation 15.5 H Plt Count 174 MPV 12.1 H Neut % (Auto) 66.5 Lymph % (Auto) 21.2 Dickens % (Auto) 8.1 Eos % (Auto) 3.9 Baso % (Auto) 0.3 Neut # (Auto) 6.10 Lymph # (Auto) 1.95 Dickens # (Auto) 0.74 H Eos # (Auto) 0.36 Baso # (Auto) 0.03 PT INR PTT (Actin FS) Sodium 135 L Potassium 4.5 Chloride 94 L Carbon Dioxide 27 Anion Gap 14 BUN 17 Creatinine 1.3 H Estimated GFR/1.73 m2 > 60 BUN/Creatinine Ratio 13 Glucose 337 H Calculated Osmolality 285 Calcium 10.0 Magnesium 1.5 Total Bilirubin 0.26 AST 16 ALT 13 Alkaline Phosphatase 59 Creatine Kinase 249 H Creatine Kinase Index 2.3 CK-MB (CK-2) 5.84 H Troponin T Ddx-J-Oiukjvupxjb Pept Total Protein 6.7 Albumin 3.8 Globulin 2.9 Albumin/Globulin Ratio 1.3 Orders Category Date Time Status Cardiac Monitoring DIRECTED Care 10/05/16 17:38 Active Saline Loc NOW Care 10/05/16 17:38 Active CHEST-2 VIEWS [RAD] Stat Exams 10/05/16 17:38 Taken CBC WITH ELECTRONIC DIFF [HEME] Stat Lab 10/05/16 18:09 Completed CK PROFILE [SP CHEM] Stat Lab 10/05/16 18:09 Completed COMPREHENSIVE METABOLIC PANEL [CHEM] Stat Lab 10/05/16 18:09 Completed MAGNESIUM [CHEM] Stat Lab 10/05/16 18:09 Completed PRO B-NATRIURETIC PEPTIDE Stat Lab 10/05/16 18:09 Completed PROTIME WITH INR [COAG] Stat Lab 10/05/16 18:09 Completed PTT [COAG] Stat Lab 10/05/16 18:09 Completed TROPONIN T Stat Lab 10/05/16 18:09 Completed Aspirin Med 10/05/16 17:38 Discontinued 325 mg PO STAT STA Insulin Human Regular [Humulin R] Med 10/05/16 19:17 Discontinued 10 unit IV NOW ONE Nitroglycerin Sl [Nitroglycerin] Med 10/05/16 17:38 Active 0.4 mg SL Q5M PRN PRN EKG [EKG] Stat Ther 10/05/16 17:22 Ordered Laboratory Tests 10/05/16 10/05/16 10/05/16 18:09 18:09 18:09 WBC 9.18 RBC 5.06 Hgb 14.1 Hct 42.7 MCV 84.4 MCH 27.9 MCHC 33.0 RDW Std Deviation 15.5 H Plt Count 174 MPV 12.1 H Neut % (Auto) 66.5 Lymph % (Auto) 21.2 Dickens % (Auto) 8.1 Eos % (Auto) 3.9 Baso % (Auto) 0.3 Neut # (Auto) 6.10 Lymph # (Auto) 1.95 Dickens # (Auto) 0.74 H Eos # (Auto) 0.36 Baso # (Auto) 0.03 PT INR PTT (Actin FS) Sodium 135 L Potassium 4.5 Chloride 94 L Carbon Dioxide 27 Anion Gap 14 BUN 17 Creatinine 1.3 H Estimated GFR/1.73 m2 > 60 BUN/Creatinine Ratio 13 Glucose 337 H Calculated Osmolality 285 Calcium 10.0 Magnesium 1.5 Total Bilirubin 0.26 AST 16 ALT 13 Alkaline Phosphatase 59 Creatine Kinase 249 H Creatine Kinase Index 2.3 CK-MB (CK-2) 5.84 H Troponin T Rxt-Q-Zxeucgcdacs Pept 698 H Total Protein 6.7 Albumin 3.8 Globulin 2.9 Albumin/Globulin Ratio 1.3 10/05/16 10/05/16 18:09 18:09 WBC RBC Hgb Hct MCV MCH MCHC RDW Std Deviation Plt Count MPV Neut % (Auto) Lymph % (Auto) Dickens % (Auto) Eos % (Auto) Baso % (Auto) Neut # (Auto) Lymph # (Auto) Dickens # (Auto) Eos # (Auto) Baso # (Auto) PT 13.0 H INR 1.22 PTT (Actin FS) 33.4 Sodium Potassium Chloride Carbon Dioxide Anion Gap BUN Creatinine Estimated GFR/1.73 m2 BUN/Creatinine Ratio Glucose Calculated Osmolality Calcium Magnesium Total Bilirubin AST ALT Alkaline Phosphatase Creatine Kinase Creatine Kinase Index CK-MB (CK-2) Troponin T < 0.010 Doz-C-Yyzjhozzmfj Pept Total Protein Albumin Globulin Albumin/Globulin Ratio - XRAY 1 XRAY Study: Chest XRAY Interpretation: NAD, No change from prior (Piyush) Departure - Departure Time of Disposition Order: 19:27 DIAGNOSIS: CHF (congestive heart failure) Qualifiers: Congestive heart failure type: unspecified congestive heart failure type Congestive heart failure chronicity: chronic Qualified Code(s): I50.9 - Heart failure, unspecified Chest pain Qualifiers: Chest pain type: unspecified Qualified Code(s): R07.9 - Chest pain, unspecified Disposition: HOME 01 Certified Medical Emergency: Emergent Condition: Stable Additional Instructions: Follow up with primary care physician Return to ED for any concerns or worsening of symptoms ED Follow Up Instructions: You have been treated by a care provider in the Emergency Department. These instructions are being provided to you so you can have an understanding of how to care for yourself upon discharge. Upon discharge from the Emergency Department, you are responsible for making arrangements for follow-up care by a physician of your choice. Take all prescribed medications as directed. Return to the Emergency Department immediately for any new or worsening symptoms. You may call the Physician Referral phone number at [phone] to obtain a list of Physicians who are taking new patients. Attestation - Physician/ SANTHOSH Attestation Patient care was provided by Advanced Practice Provider:: Yes Advanced Practice Provider:: Idalmis Pickett Advanced Practice Provider documentation review:: The Mid-level provider documentation, treatment plan and medical decision making was reviewed by the physician who agrees with all treatment and medical decision making by the MLP.
--- NOTE | 2016-10-05 18:02 | ED EKG INTERP ---
EKG Interpretation - EKG Time of EKG reading by physician:: 17:23 EKG Read and Signed by:: Blas Ocampo EKG Interpretation (*Must complete 3 of following elements*): Abnormal Rate: 74 (left anterior fascicular block; inferior infarct; Twave abnormality, consider lateral ischemia) Rhythm: atrial flutter with 4:1 AV conduction Attestation - Scribe Verification/Attestation Scribe:: Staci Evangelista Acting as Scribe for:: Blas Ocampo Scribe documention review:: This chart was documented by a scribe and accurately reflects the service the provider performed and the decisions made by the provider.
[2016-10-05 18:19] LABS: MANUAL DIFF NEEDED? NO
[2016-10-05 18:24] LABS: BASO% 0.3 % (0.0-0.8); EOS# 0.36 X1000 (0.0-0.7); EOS% 3.9 % (0.0-10.0); HEMATOCRIT 42.7 % (42.0-52.0); HEMOGLOBIN 14.1 g/dL (14.0-18.0); LYMPH# 1.95 X1000 (1.2-3.4); LYMPH% 21.2 % (20.5-51.1); MCH 27.9 PG (27-31); MCV 84.4 FL (81-99); MONO# 0.74 X1000 (0.11-0.59); MONO% 8.1 % (1.7-9.3); MPV 12.1 FL (7.4-10.4); NEUT% 66.5 % (42.2-75.2); PLT 174 X1000 (130-400); RBC 5.06 XMIL (4.7-6.1)
[2016-10-05 18:34] LABS: INR 1.22; PTT 33.4 Seconds (22.0-36.0)
[2016-10-05 18:47] LABS: AGAP 14; ALBUMIN 3.8 g/dL (3.5-5.0); ALKALINE PHOSPHATASE 59 U/L (32-122); BUN 17 mg/dL (8-22); CHLORIDE 94 mmol/L (98-107); COSMO 285; GOT 16 U/L (10-34); GPT 13 U/L (10-44); MAGNESIUM 1.5 mg/dL (1.5-2.7); POTASSIUM 4.5 mmol/L (3.5-5.1); SODIUM 135 mmol/L (136-145); TCO2 27 mmol/L (25-35); TOTAL BILIRUBIN 0.26 mg/dL (0.20-1.00); TOTAL PROTEIN 6.7 g/dL (6.3-8.3)
[2016-10-05 18:49] LABS: CK PROFILE 249 U/L (24-204)
[2016-10-05 19:03] LABS: CK INDEX 2.3 (0.0-2.5); CK-MB 5.84 ng/mL (0.0-5.0)
[2016-10-05] MEDS ORDERED: HUMULIN R IV ONE (19:17)
[2016-10-05 20:08] VITALS: BP 144/82
--- NOTE | 2016-10-05 23:09 | Diag Imaging Result Document ---
PROCEDURE NAME: CHEST-2 VIEWS - 10/05/2016 SEATED AP AND LATERAL RADIOGRAPH OF THE CHEST: COMPARISON: 09/25/2016. FINDINGS: There is stable cardiomegaly. Central vasculature may be mildly prominent suggesting mild pulmonary venous congestion. The lungs are grossly clear, otherwise. There is no definite pleural fluid collection. IMPRESSION: Stable cardiomegaly and possible mild pulmonary venous congestion.
--- NOTE | 2016-10-07 06:35 | EKG Report ---
Test Performed on : 10/05/2016 5:23:36 PM Test Reason : CPSOB Blood Pressure : / mmHG Vent. Rate : 074 BPM Atrial Rate : 288 BPM P-R Int : 000 ms QRS Dur : 096 ms QT Int : 372 ms P-R-T Axes : 017 -46 134 degrees QTc Int : 412 ms Atrial flutter. with 4:1 AV conduction. Left anterior fascicular block Inferior infarct (cited on or before 27-SEP-2016) T wave abnormality, consider lateral ischemia Abnormal ECG When compared with ECG of 27-SEP-2016 22:07, (Unconfirmed) Nonspecific T wave abnormality now evident in Inferior leads T wave inversion now evident in Lateral leads Unconfirmed Result
== END 2016-10-05 20:08 | disposition home or self-care (01) ==
LOC: ED 17:20
DX: I50.9 Heart failure, unspecified (principal); R07.89 Other chest pain; R94.31 Abnormal electrocardiogram [ECG] [EKG]; M79.602 Pain in left arm; R05 Cough; R09.3 Abnormal sputum; R11.0 Nausea; R06.02 Shortness of breath; Z79.899 Other long term (current) drug therapy; I25.10 Atherosclerotic heart disease of native coronary artery without angina pectoris; I10 Essential (primary) hypertension; E78.5 Hyperlipidemia, unspecified; I25.2 Old myocardial infarction; J44.9 Chronic obstructive pulmonary disease, unspecified; G89.29 Other chronic pain; E11.9 Type 2 diabetes mellitus without complications; F41.9 Anxiety disorder, unspecified; F32.9 Major depressive disorder, single episode, unspecified; Z79.01 Long term (current) use of anticoagulants; Z79.82 Long term (current) use of aspirin; Z79.4 Long term (current) use of insulin; Z89.612 Acquired absence of left leg above knee
CPT/HCPCS: 71020; 80053; 82550; 82553; 82948; 83735; 83880; 84484; 85025; 85610; 85730; 93005